=== PATIENT | male | born 1985 | race Caucasian/White ===

== ENCOUNTER 2019-11-01 16:18 | Emergency (ER) | payer BC, SELFPAY ==
[2019-11-01 16:20] VITALS: BP 123/72; PULSE 98; RESP 20; TEMP 36.4; O2SAT 96; BMI 33.4
--- NOTE | 2019-11-01 16:28 | ECG_ITS ---
[facility] Test Date: 2019-11-01 Pat Name: Joce Darling Department: Room: Gender: Male Carrot Tier: : 1985 Requested By: Ly Haider Order Number: [id number] Linden MD: Leon Jo M.D. Measurements Intervals [place] Rate: 82 P: 52 ND: 161 QRS: 34 QRSD: 94 T: 11 QT: 398 QTc: 468 Interpretive Statements SINUS RHYTHM PROBABLE INFERIOR MYOCARDIAL INFARCTION , PROBABLY OLD [35 ms Q WAVE IN II/aVF] No previous ECG available for comparison Electronically Signed On 11-01-2019 16:41:51 CDT by Leon Jo M.D. [id number] f
[2019-11-01 16:31] VITALS: BP 124/78; PULSE 84; RESP 20; O2SAT 97
[2019-11-01] MEDS: sodium chloride 0.9% 1,000 ML 999 ML IV (16:33)
--- NOTE | 2019-11-01 16:35 | W.ED.ALLEREA ---
HPI - Allergic Reaction General: Chief complaint: Allergic Reaction Stated complaint: ALLERGIC RXN WASP STING Time Seen by Provider: 11/01/19 16:24 Source: patient and EMS Mode of arrival: EMS Limitations: no limitations History of Present Illness: HPI narrative: 34-year-old male who is here after an allergic reaction. Patient states that he was stung by a wasp at 330. He states he started have some slight dyspnea he had allergic reactions to wasps in the past and gave himself an EpiPen and treated with Benadryl. When EMS arrived he had no rash or shortness of breath. Patient is given IV Benadryl as well. He states that he has no shortness of breath and no swelling or rash at this time. Denies any worsening or improving factors. MD complaint: allergic reaction Associated symptoms: Deny abdominal pain, nausea or vomiting Review of Systems Const: Denies: fever(s), chills, body aches or change in appetite Eyes: Denies: blurry vision or eye discomfort ENMT: Denies: throat pain or dental pain Card: Denies: chest pain Resp: Denies: dyspnea GI: Denies: abdominal pain, nausea, vomiting or diarrhea : Denies: dysuria Musc: Denies: neck pain or back pain Skin/Breast: Denies: rash Neuro: Denies: headache(s) Psych: Denies: depression Mario/Lymph: Denies: easy bruising All/Imm: Denies: urticaria Physical Exam Const: COMMON NORMALS: no acute distress, patient oriented x3 and healthy appearing HENMT: COMMON NORMALS: normocephalic and atraumatic HEAD & SCALP: normocephalic and atraumatic Eye: COMMON NORMALS: Equal, round and reactive pupils present and EOMs intact bilaterally PUPIL: Yes Equal, round and reactive pupils present Neck/C-Spine: COMMON NORMALS: full ROM and supple Chest: COMMONS NORMALS: normal inspection of the chest and normal palpation of entire chest wall Resp: COMMON NORMALS: normal respiratory effort, No retractions, No use of accessory muscles and clear to auscultation bilaterally AUSCULTATION: clear to auscultation bilaterally Cardio: COMMON NORMALS: regular rate, regular rhythm and No murmurs present (Cardio) RATE: regular rate RHYTHM: regular rhythm GI: COMMON NORMALS: Normal to inspection, nondistended, normoactive bowel sounds present, Soft to palpation, non-tender and no masses PALPATION: Yes Soft to palpation Extremity: COMMON NORMALS: normal to inspection and full ROM Neuro: COMMON NORMALS: patient oriented x3, moves all extremities and no focal motor deficits Psych: COMMON NORMALS: mental status grossly normal, Normal thought process present and cooperative THOUGHT PROCESS: Normal thought process present Skin: COMMON NORMALS: no rashes or lesions noted and no wounds GENERAL SKIN EXAM: no rashes or lesions noted Course Vital Signs: Vital signs: Vital Signs Temperature 97.6 F 11/01/19 16:20 Pulse Rate 84 11/01/19 16:31 Respiratory Rate 20 H 11/01/19 16:31 Blood Pressure 124/78 11/01/19 16:31 Pulse Oximetry 97 11/01/19 16:31 MDM - Allergic Reaction MDM Narrative: Medical decision making narrative: 34-year-old male who presents here with an allergic reaction. Patient states that he feels much improved here. He has been 2 hours post his epinephrine injection and has had no symptoms of severe anaphylaxis. Patient is stable for direct discharge and will refill his EpiPen. EKG Data^: EKG 1: Attestation: I personally reviewed and interpreted this EKG as follows: EKG interpretation date: 11/01/19 EKG interpretation time: 16:38 Interpretation: nsr hr [address] or t wave abnormalities qrs 94 qtc 437 Discharge Plan Discharge Patient Disposition: Home, Self-Care Clinical Impression: Allergic reaction Qualifiers: Encounter type: initial encounter Qualified Code(s): T78.40XA - Allergy, unspecified, initial encounter Condition: Stable Prescriptions: New EpiPen 2-Jose Elias 0.3 mg/0.3 mL auto-injector 0.3 mg IM Q4H PRN (Reason: anaphylaxis) Qty: 1 RF: 0 Discharge Orders: Discharge Order (Routine); Ordered 11/01/19 Ordered By: Ly Haider Discharge Diet: Advance as tolerated Discharge Activity: Resume usual activity Patient Instructions: Anaphylaxis (ED) Coding Level of Care Code ED Drapery And Upholstery Estimator for Ashleighg Fwd Exam Comprehensive
[2019-11-01 17:23] VITALS: BP 108/88; PULSE 95; RESP 22; O2SAT 99
== END 2019-11-01 17:22 | disposition home or self-care (01) ==
PROVIDERS: Emergency Provider Emergency Medicine
DX: T78.40XA Allergy, unspecified, initial encounter (principal)
CPT/HCPCS: 12345; 93005; 96361; 96374; 96375; 99283; 99284; J2930; J7030

== ENCOUNTER 2022-05-12 12:15 | Emergency (ER) | payer BC, SELFPAY ==
[2022-05-12 12:35] VITALS: BP 128/85; PULSE 71; RESP 16; TEMP 36.4; O2SAT 99
--- NOTE | 2022-05-12 12:40 | XRR_ITS ---
PROCEDURE INFORMATION: Exam: XR Right Hand Exam date and time: 05/12/2022 12:54 PM Age: 36 years old Clinical indication: Injury or trauma; Other: Nail in thumb; Puncture; Finger; Right TECHNIQUE: Imaging protocol: Radiologic exam of the Right hand. Views: Frontal, lateral, and oblique, 3 views. COMPARISON: No relevant prior studies available. FINDINGS: Bones/joints: No acute bony abnormality identified. Soft tissues: 8 cm metallic nail oriented from proximally (lateral to the distal epiphysis of the 1st metacarpal) to distally (the tip in the soft tissues anterolateral to the distal radius). XR/XR hand RT min 3V* [id number] IMPRESSION: 1. Soft tissue foreign body. 2. No acute bony injury identified.
[2022-05-12] MEDS: HYDROcodone-acetaminophen 5-325 mg Tablet 1 TAB PO (13:20)
[2022-05-12] MEDS: tetanus-dipt-pertussis 0.5 mL SDV IM (13:21)
[2022-05-12] MEDS: lidocaine 1% INJ 10 mL (per mL) 5 ML XX (13:23)
[2022-05-12 13:42] VITALS: BP 119/72; PULSE 69; RESP 14; O2SAT 99
--- NOTE | 2022-05-12 14:00 | ED_ITS ---
Documented by User: Claire Currie PA-C 05/12/22 14:05 HPI - Extremity Problem General: Chief complaint: Extremity Injury, Upper Stated complaint: Nail in hand Time Seen by Provider: 05/12/22 12:41 Source: patient Mode of arrival: ambulatory Limitations: no limitations History of Present Illness: 6-year-old male presents to the ER today for a nail in the right hand. 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 This is at the base of the thumb and it did come out the other side. The nail is still in place. Patient also still has the glove on because he could not remove it. He reports some mild pain with certain movements. Denies any decrease sensation. No decreased movement. Bleeding controlled. Review of Systems General: Reports: 10 or more systems reviewed and unremarkable except in HPI and below Physical Exam Const: COMMON NORMALS: no acute distress, average body habitus, patient oriented x3, no limitations, healthy appearing, alert and well nourished Resp: COMMON NORMALS: normal respiratory effort EFFORT & INSPECTION: Yes able to speak in complete sentences Cardio: COMMON NORMALS: regular rate and regular rhythm RATE: regular rate RHYTHM: regular rhythm Extremity: NARRATIVE EXTREMITY EXAM: Patient is noted to have a nail through the right hand. This is at the base of the thumb does not appear to be through the joint. There is mild swelling. Patient has mild tenderness to palpation of that area. Normal range of motion at this time. No numbness or tingling noted. Neuro: COMMON NORMALS: patient oriented x3 SENSORIUM/ORIENTATION: Yes alert Psych: COMMON NORMALS: mental status grossly normal, Normal thought process present and cooperative THOUGHT PROCESS: Normal thought process present Skin: NARRATIVE SKIN EXAM: Puncture wound where the nail entered the right thumb just below the base/joint and exited superior to the wrist. Bleeding controlled. Procedures Foreign Body Removal Site: right and hand Description of foreign body: other (Large nail) Sedation/Analgesia: other (1% lidocaine without epi, 4 cc infiltrated around the nail.) Technique: manual removal (With pliers) Confirmed by:: direct visualization and radiograph Complications: none Post-procedure exam: awake, alert Neurovascular: normal distal pulse and normal capillary fill Course ED course: Patient has a nail still in place through a glove in the right hand. We will get an x-ray to make sure this does not involve bone or joint. Patient denies any pain currently. His tetanus status is unknown. Vital Signs: Vital signs: Vital Signs Temperature 97.6 F 05/12/22 12:35 Pulse Rate 69 05/12/22 13:42 Respiratory Rate 14 05/12/22 13:42 Blood Pressure 119/72 05/12/22 13:42 Pulse Oximetry 99 05/12/22 13:42 Oxygen Delivery Me thod 05/12/22 12:35 MDM - Extremity (Nontraumatic) Medical Decision Making X-ray does not indicate any bone or joint involvement. This appears to be through soft tissue. See foreign body removal note. Patient tolerated the procedure very well. We will start patient on Augmentin given patient was wearing a glove that was made of rubber in addition to having a puncture wound. Tdap was also updated today. We discussed signs of infection and when to return to the ER. Follow-up with PCP in 5 to 7 days for wound check. Return to the ER with new or worsening symptoms. Patient verbalized understanding and was in agreement with the treatment plan. Lab Data Radiology Impressions Hand X-Ray 05/12/22 12:40 IMPRESSION: 1. Soft tissue foreign body. 2. No acute bony injury identified. Critical Care Time Critical Care Time: Critical Care Time: No Discharge Plan Discharge Patient Disposition: Home Clinical Impression: Injury of hand by nail gun Qualifiers: Encounter type: initial encounter Laterality: right Qualified Code(s): S69.91XA - Unspecified injury of right wrist, hand and finger(s), initial encounter Condition: Stable Prescriptions: New amoxicillin-pot clavulanate 875-125 mg tablet 1 tab PO BID Qty: 20 0RF No Action cephalexin 500 mg capsule 500 mg PO BID 7 Days Qty: 14 0RF silver sulfadiazine 1 % cream 1 applic topical BID 14 Days Qty: 50 2RF Rx Instructions: apply a 1.5 mm thickness EpiPen 2-Jose Elias 0.3 mg/0.3 mL auto-injector 0.3 mg IM Q4H PRN (Reason: anaphylaxis) Qty: 1 0RF Discharge Orders: Discharge ED (Routine); Ordered 05/12/22 Ordered By: Claire Currie Referrals: Anthony Meyer MD [Primary Care Provider] - Discharge Diet: Usual diet Discharge Activity: Resume usual activity Patient Instructions: Opioid Safety, Pain Management Activity Restrictions/Additional Instructions: Clean wound once daily with antibacterial soap and water. Take Augmentin as prescribed. Watch for signs of infection. Follow-up with PCP in 5 to 7 days for wound check. Return to the ER with new or worsening symptoms. Coding Level of Care Code ED Director Of Quantitative Research for Adam Fwd Exam Expanded Problem Focused Documented by User: Daniele Payton DO 05/13/22 06:20 HPI - Extremity Problem General: Chief complaint: Extremity Injury, Upper Stated complaint: Nail in hand Time Seen by Provider: 05/12/22 12:41 Course Vital Signs: Vital signs: Vital Signs Temperature 97.6 F 05/12/22 12:35 Pulse Rate 69 05/12/22 13:42 Respiratory Rate 14 05/12/22 13:42 Blood Pressure 119/72 05/12/22 13:42 Pulse Oximetry 99 05/12/22 13:42 Oxygen Delivery Me thod 05/12/22 12:35 MDM - Extremity (Nontraumatic) Medical Decision Making X-ray does not indicate any bone or joint involvement. This appears to be through soft tissue. See foreign body removal note. Patient tolerated the procedure very well. We will start patient on Augmentin given patient was wearing a glove that was made of rubber in addition to having a puncture wound. Tdap was also updated today. We discussed signs of infection and when to return to the ER. Follow-up with PCP in 5 to 7 days for wound check. Return to the ER with new or worsening symptoms. Patient verbalized understanding and was in agreement with the treatment plan. Mid chart reviewed and patient discussed with midlevel. Agree with assessment and plan. Lab Data Radiology Impressions Hand X-Ray 05/12/22 12:40 IMPRESSION: 1. Soft tissue foreign body. 2. No acute bony injury identified. Discharge Plan Discharge Patient Disposition: Home Clinical Impression: Injury of hand by nail gun Qualifiers: Encounter type: initial encounter Laterality: right Qualified Code(s): S69.91XA - Unspecified injury of right wrist, hand and finger(s), initial encounter Condition: Stable Prescriptions: New amoxicillin-pot clavulanate 875-125 mg tablet 1 tab PO BID Qty: 20 0RF No Action cephalexin 500 mg capsule 500 mg PO BID 7 Days Qty: 14 0RF silver sulfadiazine 1 % cream 1 applic topical BID 14 Days Qty: 50 2RF Rx Instructions: apply a 1.5 mm thickness EpiPen 2-Jose Elias 0.3 mg/0.3 mL auto-injector 0.3 mg IM Q4H PRN (Reason: anaphylaxis) Qty: 1 0RF Discharge Orders: Discharge ED (Routine); Ordered 05/12/22 Ordered By: Claire Currie Referrals: Anthony Meyer MD [Primary Care Provider] - Discharge Diet: Usual diet Discharge Activity: Resume usual activity Patient Instructions: Opioid Safety, Pain Management Activity Restrictions/Additional Instructions: Clean wound once daily with antibacterial soap and water. Take Augmentin as prescribed. Watch for signs of infection. Follow-up with PCP in 5 to 7 days for wound check. Return to the ER with new or worsening symptoms. Coding Level of Care Code ED Director Of Quantitative Research for Adam Fwmartha Exam Expanded Problem Focused
== END 2022-05-12 13:43 | disposition home or self-care (01) ==
PROVIDERS: Emergency Provider Physician Assistant; PCP Family Medicine
DX: S61.441A Puncture wound with foreign body of right hand, initial encounter (principal); W29.4XXA Contact with nail gun, initial encounter; Z23 Encounter for immunization
CPT/HCPCS: 73130; 90471; 90715; 99283

== ENCOUNTER 2023-08-03 16:34 | Inpatient (IN) | payer BC, SELFPAY ==
[2023-08-03 16:42] VITALS: BP 159/102; PULSE 79; RESP 16; TEMP 36.8; O2SAT 99
--- NOTE | 2023-08-03 16:53 | ECG_ITS ---
[facility] Test Date: 2023-08-03 Pat Name: Joce Darling Department: Room: Gender: Male Tours Captain: : 1985 Requested By: Belinda Carmona Order Number: [id number] Linden MD: Ernestina Romero M.D. Measurements Intervals [place] Rate: 70 P: 54 MT: 138 QRS: 42 QRSD: 81 T: 34 QT: 397 QTc: 430 Interpretive Statements SINUS RHYTHM LOW QRS VOLTAGE IN PRECORDIAL LEADS [QRS DEFLECTION < 1.0 mV IN CHEST LEADS] Compared to ECG 11/01/2019 16:38:05 Low QRS voltage now present Myocardial infarct finding no longer present Electronically Signed On 08-03-2023 20:53:21 CDT by Ernestina Romero M.D. [id number]
--- NOTE | 2023-08-03 16:53 | ED.C_ITS ---
HPI - Psych 2 General: Chief Complaint: Psychiatric Symptoms Stated Complaint: 96 hold Time Seen by Provider: 08/03/23 16:45 History of Present Illness: 37-year-old man with a history of depres naresh who presents to the emergency room with police after having a domestic dispute. The had videos of him threatening her. Police say they brought him here because he is threatening her and cannot go home but they do not have any charges to press. He states his marijuana is not working for his psychiatric issues. Review of Systems 2 Narrative: Constitutional symptoms: Negative except as documented in HPI. Skin symptoms: Negative except as documented in HPI. Eye symptoms: Negative except as documented in HPI. ENMT symptoms: Negative except as documented in HPI. Respiratory symptoms: Negative except as documented in HPI. Cardiovascular symptoms: Negative except as documented in HPI. Gastrointestinal symptoms: Negative except as documented in HPI. Genitourinary symptoms: Negative except as documented in HPI. Musculoskeletal symptoms: Negative except as documented in HPI. Neurologic symptoms: Negative except as documented in HPI. Psychiatric symptoms: Negative except as documented in HPI. Endocrine symptoms: Negative except as documented in HPI. Physical Exam 2 Narrative: EXAM NARRATIVE: General: Alert, no acute distress. Skin: Warm, dry. Head: Normocephalic, atraumatic. Neck: Supple, trachea midline. Eye: Extraocular movements are intact. Ears, nose, mouth and throat: mucosa moist. Cardiovascular: Regular, Normal peripheral perfusion. Respiratory: Lungs are clear to auscultation, respirations are non-labored, breath sounds are equal, Symmetrical chest wall expansion. Gastrointestinal: Soft, Nontender, Non distended, Normal bowel sounds. Musculoskeletal: Normal ROM, no deformity. Neurological: Alert and oriented, No focal neurological deficit observed. Psychiatric: Cooperative, patient now appears calm, but he does say he he would agree to get inpatient help. Course 2 Vital Signs: Vital signs: Vital Signs Temperature 98.2 F 08/03/23 16:42 Pulse Rate 79 08/03/23 16:42 Respiratory Rate 16 08/03/23 16:42 Blood Pressure 159/102 08/03/23 16:42 Pulse Oximetry 99 08/03/23 16:42 [facility] - Psych Medical Decision Making Patient with reported depression and suicidal ideation. concerns for infection, alcohol intoxication, cardiac issues or other medical problems prior to psychiatric admission. - Workup: labwork, ekg ordered to evaluate the pathologies and to clear the patient medically prior to psychiatric admission Lab Data 08/03/23 18:11 08/03/23 18:11 Laboratory Results WBC 7.22 10^3/uL (3.29-11.43) 08/03/23 18:11 RBC 4.72 10^6/uL (3.85-5.65) 08/03/23 18:11 Hgb 14.80 g/dL (11.27-16.99) 08/03/23 18:11 Hct 43.2 % (37-53) 08/03/23 18:11 MCV 91.5 fl (82-101) 08/03/23 18:11 MCH 31.4 pg (27-33) 08/03/23 18:11 MCHC 34.3 g/dL (30-55) 08/03/23 18:11 RDW 12.0 % (12.1-15.1) L 08/03/23 18:11 Plt Count 215 10^3/cmm (157-399) 08/03/23 18:11 MPV 9.4 fL (7.4-10.4) 08/03/23 18:11 Neut % (Auto) 74.0 % 08/03/23 18:11 Lymph % (Auto) 14.4 % 08/03/23 18:11 Becker % (Auto) 10.0 % 08/03/23 18:11 Eos % (Auto) 1.0 % 08/03/23 18:11 Baso % (Auto) 0.3 % 08/03/23 18:11 Neut # (Auto) 5.35 10^3/uL (1.8-7.7) 08/03/23 18:11 Lymph # (Auto) 1.0 10^3/uL (0.8-4.8) 08/03/23 18:11 Becker # (Auto) 0.7 10^3/uL (0.2-0.9) 08/03/23 18:11 Eos # (Auto) 0.1 10^3/uL (0.0-0.8) 08/03/23 18:11 Baso # (Auto) 0.0 10^3/uL (0.0-0.1) 08/03/23 18:11 Nucleated RBC % (auto) 0 % 08/03/23 18:11 Nucleated RBCs # 0.0 /100WBC 08/03/23 18:11 Sodium 141 mmol/L (136-145) 08/03/23 18:11 Potassium 4.0 mmol/L (3.5-5.1) 08/03/23 18:11 Chloride 106 mmol/L (98-107) 08/03/23 18:11 Carbon Dioxide 25 mmol/L (22-29) 08/03/23 18:11 Anion Gap 14.0 (5-19) 08/03/23 18:11 BUN 26 mg/dL (6-20) H 08/03/23 18:11 Creatinine 0.7 mg/dL (0.7-1.2) 08/03/23 18:11 GFR Calculation 126.2 mL/min (90-130) 08/03/23 18:11 Glucose 136 mg/dL (65-115) H 08/03/23 18:11 Calculated Osmolality 299 mOsm/kg (285-295) H 08/03/23 18:11 Calcium 8.9 mg/dL (8.5-10.5) 08/03/23 18:11 Total Bilirubin 0.7 mg/dL (0.15-1.2) 08/03/23 18:11 AST 23 U/L (0-40) 08/03/23 18:11 ALT 19 U/L (0-41) 08/03/23 18:11 Alkaline Phosphatase 72 U/L (40-130) 08/03/23 18:11 Total Protein 6.9 g/dL (6.6-8.7) 08/03/23 18:11 Albumin 4.3 g/dL (3.5-5.2) 08/03/23 18:11 Globulin 2.6 g/dL (1.3-4.6) 08/03/23 18:11 TSH 0.78 uIU/mL (0.27-4.20) 08/03/23 18:11 Urine Color Yellow (Yellow) 08/03/23 17:00 Urine Appearance Cloudy (CLEAR) A 08/03/23 17:00 Urine pH 7 (5-7) 08/03/23 17:00 Ur Specific [place] 1.020 (1.005-1.030) 08/03/23 17:00 Urine Protein Neg (Negative) 08/03/23 17:00 Urine Glucose (UA) Norm (Normal) 08/03/23 17:00 Urine Ketones Negative (Negative) 08/03/23 17:00 Urine Blood Neg (Negative) 08/03/23 17:00 Urine Nitrate Negative (Negative) 08/03/23 17:00 Urine Bilirubin Neg (Negative) 08/03/23 17:00 Urine Urobilinogen 4 mg/dL (Negative) H 08/03/23 17:00 Ur Leukocyte Esterase Negative (Negative) 08/03/23 17:00 Urine RBC None /hpf (0-2) 08/03/23 17:00 Urine WBC Rare /hpf (0-5) 08/03/23 17:00 Ur Squamous Epith Cells None /hpf (0-5) 08/03/23 17:00 Amorphous Sediment 3+ /hpf 08/03/23 17:00 Urine Bacteria Trace /hpf (NONE) 08/03/23 17:00 Salicylates 0.7 mg/dL (3-10) L 08/03/23 18:11 Urine Opiates Screen Negative ng/mL (Negative) 08/03/23 17:00 Acetaminophen < 5.0 ug/mL (10-30) L 08/03/23 18:11 Ur Barbiturates Screen Negative ng/mL (Negative) 08/03/23 17:00 Ur Phencyclidine Scrn Negative ng/mL (Negative) 08/03/23 17:00 Ur Amphetamines Screen Negative ng/mL (Negative) 08/03/23 17:00 U Benzodiazepines Scrn Negative ng/mL (Negative) 08/03/23 17:00 Urine Cocaine Screen Negative ng/mL (Negative) 08/03/23 17:00 U Marijuana (THC) Screen Positive ng/mL (Negative) H 08/03/23 17:00 Ethyl Alcohol < 10 mg/dL (0-10) 08/03/23 18:11 No radiology studies performed this visit Other Data Assessment and plan Psychiatric problem - Medically cleared. - EKG shows no ischemic changes. - Blood alcohol level is negative, as well as salicylate and Tylenol. - Drug screen is negative - No signs of infection, urinalysis clear and white count is not elevated - No anemia. - BUN and creatinine are within normal limits. - Transfer to psychiatric facility for continued evaluation and treatment. - All imaging and lab work were reviewed and interpreted personally by myself, the ER physician - Evaluation and treatment of this problem were appropriate in the emergency setting Discharge Plan Discharge Patient Disposition: Admitted As Inpatient Clinical Impression: Psychiatric problem Condition: Stable Coding Level of Care Code ED Fundraising Sale Representative for Adam Adrian
[2023-08-03 17:20] LABS: Amphetamines Screen Urine Negative (Negative); Barbiturates Screen Urine Negative (Negative); Benzodiazepines Screen Urine Negative (Negative); Cocaine Screen Urine Negative (Negative); Opiate Screen Urine Negative (Negative); PCP Screen Urine Negative (Negative); THC Screen Urine Positive (Negative)
[2023-08-03 18:04] LABS: Add Urine Microscopic? YES; Bilirubin Urine Neg (Negative); Blood Urine Neg (Negative); Glucose Urine UA Norm (Normal); Ketones Urine Negative (Negative); Leukocyte Esterase Urine Negative (Negative); Nitrate Urine Negative (Negative); Protein Urine Neg (Negative); Urine Appearance Cloudy (CLEAR); Urine Color Yellow (Yellow); Urobilinogen Urine 4 mg/dL (Negative); WBC Urine RARE /hpf (0-5); pH Urine 7 (5-7)
[2023-08-03 18:05] LABS: Add Urine Culture? No; Amorphous Sediment Urine 3+ /hpf; Bacteria Urine TRACE /hpf
[2023-08-03 18:18] LABS: Basophils % 0.3 %; Eosinophils # 0.1 10^3/uL (0.0-0.8); Hematocrit 43.2 % (37-53); Lymphocytes % 14.4 %; Mean Corpuscular HGB Conc 34.3 g/dL (30-55); Mean Corpuscular Hemoglobin 31.4 pg (27-33); Mean Corpuscular Volume 91.5 fl (82-101); Mean Platelet Volume 9.4 fL (7.4-10.4); Monocytes # 0.7 10^3/uL (0.2-0.9); Neutrophils # 5.35 10^3/uL (1.8-7.7); Nucleated Red Blood Cells % 0 %; Platelet Count 215 10^3/cmm (157-399); Red Blood Count 4.72 10^6/uL (3.85-5.65); White Blood Count 7.22 10^3/uL (3.29-11.43)
[2023-08-03 18:45] LABS: Alanine Aminotransferase 19 U/L (0-41); Albumin Level 4.3 g/dL (3.5-5.2); Alkaline Phosphatase 72 U/L (40-130); Aspartate Amino Transferase 23 U/L (0-40); Blood Urea Nitrogen 26 mg/dL (6-20); Calcium 8.9 mg/dL (8.5-10.5); Carbon Dioxide 25 mmol/L (22-29); Chloride 106 mmol/L (98-107); Creatinine Clr Calc Pharmacy 152.8243; Globulin 2.6 g/dL (1.3-4.6); Glomerular Filtration Rate 126.2 mL/min (90-130); Glucose 136 mg/dL (65-115); Osmolality Calculated 299 mOsm/kg (285-295); Salicylate 0.7 mg/dL (3-10); Sodium 141 mmol/L (136-145); Thyroid Stimulating Hormone 0.78 uIU/mL (0.27-4.20); Total Bilirubin 0.7 mg/dL (0.15-1.2); Total Protein 6.9 g/dL (6.6-8.7)
[2023-08-03 18:50] LABS: Acetaminophen < 5.0 ug/mL (10-30); Alcohol Level < 10 mg/dL (0-10)
[2023-08-03 20:18] VITALS: BP 123/69; PULSE 88; PULSE 89; RESP 16
[2023-08-03 20:20] VITALS: BP 115/77; PULSE 66; RESP 15; TEMP 36.4; O2SAT 96
[2023-08-03 22:00] VITALS: BP 115/77; PULSE 66; RESP 15; TEMP 36.4; O2SAT 96
[2023-08-04] MEDS: trazodone 50 mg Tablet PO ×3 (01:13→23:23)
[2023-08-04] MEDS: hyDROXYzine 25 mg Capsule 50 MG PO (01:14)
[2023-08-04 06:00] VITALS: BP 142/74; PULSE 67; RESP 16; TEMP 36.3; O2SAT 98
[2023-08-04] MEDS: escitalopram 10 mg Tablet 20 MG PO (08:11)
--- NOTE | 2023-08-04 11:02 | PC.NURSE ---
room search preformed no contra band found. beds stripped and cleaned.
[2023-08-04 13:20] VITALS: BP 158/100; PULSE 85; RESP 16; TEMP 36.9; O2SAT 96
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
[2023-08-04 19:55] VITALS: BP 115/65; PULSE 81; RESP 17; TEMP 36.9; O2SAT 97
[2023-08-05 06:34] VITALS: BP 136/95; PULSE 77; RESP 16; TEMP 36.7; O2SAT 99
[2023-08-05] MEDS: escitalopram 10 mg Tablet 20 MG PO (07:31)
[2023-08-05 11:36] VITALS: BP 136/95; PULSE 77; RESP 16; TEMP 36.7; O2SAT 99
[2023-08-05 14:00] VITALS: BP 145/82; PULSE 97; RESP 20; TEMP 36.7; O2SAT 97
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
== END 2023-08-05 15:15 | disposition home or self-care (01) | DRG 880 ==
LOC: ER 19:01 → NP 19:26
PROVIDERS: Admitting Provider Psychiatry & Neurology Psychiatry; Emergency Provider Emergency Medicine; PCP Family Medicine; Visit Provider Psychiatry & Neurology Psychiatry
DX: F41.9 Anxiety disorder, unspecified (principal); F39 Unspecified mood [affective] disorder; F90.9 Attention-deficit hyperactivity disorder, unspecified type; Z63.0 Problems in relationship with spouse or partner
CPT/HCPCS: 36415; 80053; 80306; 80307; 81001; 84443; 85025; 93005; 97150; 97165; 99285; J9999

== ENCOUNTER 2023-08-14 10:31 | Inpatient (IN) | payer BC, SELFPAY ==
[2023-08-14 10:36] VITALS: BP 149/89; PULSE 81; RESP 16; TEMP 36.8; O2SAT 94; BMI 28.1
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
[2023-08-14 11:55] LABS: Basophils % 0.3 %; Eosinophils # 0.1 10^3/uL (0.0-0.8); Eosinophils % 1.4 %; Hematocrit 47.8 % (37-53); Lymphocytes # 1.3 10^3/uL (0.8-4.8); Lymphocytes % 20.2 %; Mean Corpuscular HGB Conc 34.1 g/dL (30-55); Mean Corpuscular Hemoglobin 30.9 pg (27-33); Mean Corpuscular Volume 90.5 fl (82-101); Mean Platelet Volume 9.6 fL (7.4-10.4); Monocytes # 0.6 10^3/uL (0.2-0.9); Monocytes % 9.5 %; Neutrophils # 4.47 10^3/uL (1.8-7.7); Neutrophils % 68.3 %; Nucleated Red Blood Cells % 0 %; Platelet Count 218 10^3/cmm (157-399); Red Blood Count 5.28 10^6/uL (3.85-5.65); Red Cell Distribution Width 11.9 % (12.1-15.1); White Blood Count 6.54 10^3/uL (3.29-11.43)
[2023-08-14 12:15] LABS: Alanine Aminotransferase 19 U/L (0-41); Albumin Level 4.4 g/dL (3.5-5.2); Alkaline Phosphatase 72 U/L (40-130); Anion Gap 14.4 (5-19); Blood Urea Nitrogen 21 mg/dL (6-20); Calcium 9.3 mg/dL (8.5-10.5); Carbon Dioxide 30 mmol/L (22-29); Chloride 105 mmol/L (98-107); Creatinine Clr Calc Pharmacy 132.1148; Glomerular Filtration Rate 108.2 mL/min (90-130); Glucose 110 mg/dL (65-115); Osmolality Calculated 304 mOsm/kg (285-295); Potassium 4.4 mmol/L (3.5-5.1); Sodium 145 mmol/L (136-145); Total Bilirubin 0.4 mg/dL (0.15-1.2); Total Protein 7.4 g/dL (6.6-8.7)
[2023-08-14 12:17] LABS: Acetaminophen < 5.0 ug/mL (10-30); Alcohol Level < 10 mg/dL (0-10); Salicylate < 0.3 mg/dL (3-10)
[2023-08-14 12:26] LABS: Aspartate Amino Transferase 21 U/L (0-40)
[2023-08-14 13:07] LABS: Add Urine Microscopic? YES; Bilirubin Urine Neg (Negative); Blood Urine Neg (Negative); Glucose Urine UA Norm (Normal); Ketones Urine Negative (Negative); Leukocyte Esterase Urine Trace (Negative); Nitrate Urine Negative (Negative); Protein Urine Neg (Negative); Specific Gravity, Urine 1.015 (1.005-1.030); Urine Appearance SL Hazy (CLEAR); Urine Color Yellow (Yellow); Urobilinogen Urine Norm (Negative); pH Urine 7 (5-7)
[2023-08-14 13:09] LABS: Add Urine Culture? No; Amorphous Sediment Urine 1+ /hpf
[2023-08-14 13:10] LABS: Amphetamines Screen Urine Negative (Negative); Barbiturates Screen Urine Negative (Negative); Benzodiazepines Screen Urine Negative (Negative); Cocaine Screen Urine Negative (Negative); Opiate Screen Urine Negative (Negative); PCP Screen Urine Negative (Negative); THC Screen Urine Positive (Negative)
[2023-08-14 13:22] VITALS: BP 149/99; PULSE 83; RESP 17; O2SAT 98
[2023-08-14 13:36] VITALS: BP 149/97; PULSE 79; RESP 17; TEMP 36.6; O2SAT 98
[2023-08-14 14:00] VITALS: BP 149/97; PULSE 79; RESP 17; TEMP 36.6; O2SAT 98
--- NOTE | 2023-08-14 15:39 | PC.ADMIT ---
[address] [place] Admission Note: The patient,Joce Darling,37 y/o, was given written information regarding hospital policies, unit procedures and contact persons. Patient's smoking status: .DOES NOT SMOKE Vital Signs - 8 hr 08/14/23 10:36 08/14/23 13:22 08/14/23 13:36 Temperature 98.3 F 97.9 F Pulse Rate 81 83 79 Respiratory Rate 16 17 17 Blood Pressure 149/89 149/99 149/97 Pulse Oximetry 94 98 98 Oxygen Delivery Method Room Air 08/14/23 14:00 08/14/23 14:57 Temperature 97.9 F Pulse Rate 79 Respiratory Rate 17 Blood Pressure 149/97 Pulse Oximetry 98 Oxygen Delivery Method Room Air PT RE-ADMITTED TO NPU FROM [facility] AT 1334 VIA WHEELCHAIR AND SECURITY. PT WAS PLACED ON A 96 HOUR I WITH THE [facility] [employer]. 96 HOUR HOLD ENDS ON 08/20/23 AT 1334. PT IS CALM AND COOPERATIVE. A&O TIMES 4. PT WAS GIVEN RIGHTS HANDBOOK AND RIGHTS WERE READ BY THIS RN AT 1500. PT HAD NO QUESTIONS AT THAT TIME. DENIES PAIN. DENIES SI/HI AND AVH AT THIS TIME. PT STATES HE IS HERE AGAIN DUE TO WANTING TO MAKE SURE MY MENTAL HEALTH ISN'T ALTERED AFTER EXTENSIVE MARIJUANA USE RECENTLY. PT DID TEST POSITIVE FOR THC ON UDS. PT DOES REPORT USING MARIJUANA UP TO A WEEK AGO, STATING HIS LAST USE WAS LAST FRIDAY ON 08/07/23 AND REPORTS HIS LAST ALCOHOLIC BEVERAGE ON 08/08/23, DRINKING ONE BEER. PT IS ACCOMPANIED WITH SEVERAL AFFIDAVITS FROM FAMILY MEMBERS AND FRIENDS. PT STATES MY FAMILY IS JUST WORRIED AND WANTS TO MAKE SURE I'M OKAY. PT STATES HE STARTED ABUSING MARIJUANA 3 YEARS AGO WHEN RECENTLY PT STATES IT GABRIELE GOT OUT OF CONTROL AND I WAS FIXATING ON STUFF AND MY COULDN'T TAKE IT AND WE WILL PROBABLY GET A DIVORCE. PT IS TEARFUL AT TIMES. RATES DEPRESSION 7/10 WHEN THINKING ABOUT ALL MY PROBLEMS. RATES ANXIETY 3/10. PT WAS ORIENTATED TO UNIT, RULES,, GUIDELINES AND GROUP TIMES/MEAL TIMES. PT DOES REPORT HE USE TO TAKE RATLIN 220 MG AND BROKE THE TABLETS IN HALF AND TOOK 2 TIMES A DAY. PT STATED DR. MATA WANTED TO PLACE HIM ON EXTENDED RELEASE RATLIN THE LAST TIME HE WAS HERE ONE WEEK AGO. PT STATES HE ALSO TAKES LEXAPRO 20 MG DAILY AND CONTINUES TO TAKE IT. ALL QUESTIONS ANSWERED AND SUPPORT WAS VOICED.
[2023-08-14] MEDS: escitalopram 10 mg Tablet 20 MG PO (17:33)
[2023-08-14] MEDS: hyDROXYzine 25 mg Capsule 50 MG PO (20:16)
[2023-08-14] MEDS: trazodone 50 mg Tablet PO (20:16)
[2023-08-14 21:22] VITALS: BP 120/75; PULSE 73; RESP 16; TEMP 36.6; O2SAT 97
[2023-08-15 06:00] VITALS: BP 122/81; PULSE 77; RESP 16; TEMP 36.3; O2SAT 99
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
--- NOTE | 2023-08-15 10:20 | PC.NURSE ---
Addendum entered by Dillon Solis, MELANIE 08/15/23 10:21: She stated that Kari called the nurse and said that Joce attempted to call her Dad and a worker 7 times. Attending nurse notified and phone line switched off. Will continue to monitor Original Note: This tech answer a phone call from nurse Orozco from [facility]. She relay
[2023-08-15 12:28] VITALS: BP 133/89; PULSE 95; RESP 18; TEMP 37.2; O2SAT 96
[2023-08-15 14:00] VITALS: RESP 18
[2023-08-15] MEDS: escitalopram 10 mg Tablet 20 MG PO (17:34)
[2023-08-15 20:12] VITALS: BP 133/86; PULSE 83; RESP 16; TEMP 36.3; O2SAT 97
[2023-08-15] MEDS: trazodone 50 mg Tablet PO (20:36)
[2023-08-15] MEDS: hyDROXYzine 25 mg Capsule 50 MG PO (20:36)
[2023-08-16 06:00] VITALS: BP 117/73; PULSE 93; RESP 16; TEMP 36.3; O2SAT 98
--- NOTE | 2023-08-16 12:23 | P.NPUPN_ITS ---
Subjective NPU 2 Subjective: Patient presented today reporting that things are going okay. We discussed talking with his family and working through some of the issues that seem to be more about family discord that it does safety. We discussed some decisions he needs to make that may impact how they receive etc. he continues to struggle with this decision about marijuana and we discussed an analogy about the person using responsibly versus a person using outside of what will be seen is reasonable. Mental Status Exam 2 MSE Comments: This is an overweight white male in hospital scrubs with adequate grooming and eye contact. No abnormal movements except for mild psychomotor retardation. Cooperative with exam in mild distress. His gait was within normal limits. Speech was slightly decreased volume normal rate. Mood described as as good as can be expected, his affect was slightly restricted in range. His thought process was linear logical and goal-directed. His thought content: He denies suicidal or homicidal ideation, there were no delusions reported or noted, he denied any auditory or visual hallucinations. Patient denies feeling depressed but admits to occasional sadness. He reports severe social anxiety and difficulty interacting with people. He denies having suicidal thoughts and expresses optimism about his future. He reports experiencing heightened stress due to family and marital issues. He admits to acting differently under the influence of cannabis, which has led to conflicts with his . Attention and concentration were intact and memory appeared reliable but none were formally tested. He is alert and oriented x 3. Insight and judgment appeared fair and his impulse control was limited. Vitals/I&O/Wt Last Vital Signs Temp 97.3 F L 08/16/23 06:00 Pulse 93 08/16/23 06:00 Resp 16 08/16/23 06:00 BP 117/73 08/16/23 06:00 Pulse Ox 98 08/16/23 06:00 O2 Del Method Room Air 08/15/23 12:28 08/15/23 08/16/23 08/16/23 22:59 06:59 14:59 Intake Total 240 / 240 120 / 120 Balance 240 / 240 120 / 120 Data NPU 08/14/23 11:11 08/14/23 11:11 A&P Assessment and plan (1) Unspecified mood [affective] disorder: (2) ADHD (attention deficit hyperactivity disorder), combined type: (3) Mood disorder: (4) Marital/partner relational problem: Plan 37-year-old male with 1 inpatient hospitalization about 11 days ago when he he was admitted on a 96-hour hold with allegations of threatening behavior and reports of increased paranoia possibly in the context of use of marijuana returning with continued family conflict with concerns about many different psychosocial factors. Patient presents with severe social anxiety and conflict in his marital relationship due to his cannabis use. He denies having bipolar disorder or depression but admits to occasional sadness. He has a history of ADHD and has been prescribed Ritalin, Lexapro, and Seroquel in the past. He has been hospitalized twice for mental health concerns. 1.? Engage patient in individual milieu and group therapy. 2?? Recommend sober living treatment at the highest level of care to which the patient is willing to commit 3?? TO-15 minute checks 4 continue current medication. 5?? Will attempt to gather collateral information Involuntary Hold Information 2 96 Hour Hold: 96 Hour Involuntary Admission: Yes 96 Hour Hold Ending Date: 08/20/23 96 Hour Hold Ending Time: 13:34 Attestations NPU 2 Medical Necessity Statement*: Inpatient hospitalization is medically necessary and the clinically appropriate intervention at this time.? We will monitor/initiate medications and make changes as indicated.? The patient?s likely length of stay 2-4 days. Coding Level of Care Code Acute Code for Chg Fwd Diagnoses Unspecified mood [affective] disorder F39 ADHD (attention deficit hyperactivity disorder), combined type F90.2 Marital/partner relational problem Z63.0
[2023-08-16 13:32] VITALS: BP 130/87; PULSE 96; RESP 16; TEMP 37; O2SAT 98
[2023-08-16] MEDS: escitalopram 10 mg Tablet 20 MG PO (17:35)
[2023-08-16 20:23] VITALS: BP 112/75; PULSE 90; RESP 18; TEMP 36.5; O2SAT 96
[2023-08-16] MEDS: trazodone 50 mg Tablet PO (21:22)
[2023-08-16] MEDS: hyDROXYzine 25 mg Capsule 50 MG PO (21:22)
[2023-08-17 06:00] VITALS: BP 125/75; PULSE 65; RESP 16; TEMP 36.3; O2SAT 99
--- NOTE | 2023-08-17 13:06 | P.NPUPN_ITS ---
Subjective NPU 2 Subjective: Patient presented today reporting that he is feeling fine and feels prepared to address the challenges of his life and family. He continues to struggle with how to manage the cannabis use. Family making some demands that he is feeling will be hard to except including regular drug testing. However we discussed that there are not have been no signs of psychosis during his stay and that the issues that he and his family are struggling with will need to be addressed by using standard social and or therapeutic options. He denies any side effects to his medications. We discussed a plan for likely discharge tomorrow. Mental Status Exam 2 MSE Comments: This is an overweight white male in hospital scrubs with adequate grooming and eye contact. No abnormal movements except for mild psychomotor retardation. Cooperative with exam in mild distress. His gait was within normal limits. Speech was slightly decreased volume normal rate. Mood described as feeling better, his affect was slightly brighter. His thought process was linear logical and goal-directed. His thought content: He denies suicidal or homicidal ideation, there were no delusions reported or noted, he denied any auditory or visual hallucinations. Patient denies feeling depressed but admits to occasional sadness. He reports severe social anxiety and difficulty interacting with people. He denies having suicidal thoughts and expresses optimism about his future. He reports experiencing heightened stress due to family and marital issues. He admits to acting differently under the influence of cannabis, which has led to conflicts with his . Attention and concentration were intact and memory appeared reliable but none were formally tested. He is alert and oriented x 3. Insight and judgment appeared fair and his impulse control was limited. Vitals/I&O/Wt Last Vital Signs Temp 97.3 F L 08/17/23 06:00 Pulse 65 08/17/23 06:00 Resp 16 08/17/23 06:00 BP 125/75 08/17/23 06:00 Pulse Ox 99 08/17/23 06:00 O2 Del Method Room Air 08/17/23 06:00 Weight last 48 hrs Weight 85.094 kg Data NPU 08/14/23 11:11 08/14/23 11:11 A&P Assessment and plan (1) Unspecified mood [affective] disorder: (2) ADHD (attention deficit hyperactivity disorder), combined type: (3) Mood disorder: (4) Marital/partner relational problem: Plan 37-year-old male with 1 inpatient hospitalization about 11 days ago when he he was admitted on a 96-hour hold with allegations of threatening behavior and reports of increased paranoia possibly in the context of use of marijuana returning with continued family conflict with concerns about many different psychosocial factors. Patient presents with severe social anxiety and conflict in his marital relationship due to his cannabis use. He denies having bipolar disorder or depression but admits to occasional sadness. He has a history of ADHD and has been prescribed Ritalin, Lexapro, and Seroquel in the past. He has been hospitalized twice for mental health concerns. 1.? Engage patient in individual milieu and group therapy. 2?? Recommend sober living treatment at the highest level of care to which the patient is willing to commit 3?? TO-15 minute checks 4 continue current medication. 5?? advised him to tell family that I will be available to speak to them prior to discharge if they have any concerns or want to have any input. Involuntary Hold Information 2 96 Hour Hold: 96 Hour Involuntary Admission: Yes 96 Hour Hold Ending Date: 08/20/23 96 Hour Hold Ending Time: 13:34 Attestations NPU 2 Medical Necessity Statement*: Inpatient hospitalization is medically necessary and the clinically appropriate intervention at this time.? We will monitor/initiate medications and make changes as indicated.? The patient?s likely length of stay 1-3 days. Coding Level of Care Code Acute Code for Chg Fwd Diagnoses Unspecified mood [affective] disorder F39 ADHD (attention deficit hyperactivity disorder), combined type F90.2 Marital/partner relational problem Z63.0
[2023-08-17 14:00] VITALS: BP 136/84; PULSE 95; RESP 20; TEMP 36.6; O2SAT 97
[2023-08-17] MEDS: escitalopram 10 mg Tablet 20 MG PO (17:48)
[2023-08-17 20:31] VITALS: BP 129/85; PULSE 83; RESP 18; TEMP 36.6; O2SAT 97
[2023-08-17] MEDS: trazodone 50 mg Tablet PO (21:45)
[2023-08-17] MEDS: hyDROXYzine 25 mg Capsule 50 MG PO (21:47)
[2023-08-18 06:00] VITALS: BP 125/79; PULSE 75; RESP 16; TEMP 36.4; O2SAT 99
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
[2023-08-18 11:50] VITALS: BP 125/79; PULSE 75; RESP 16; TEMP 36.4; O2SAT 99
== END 2023-08-18 12:35 | disposition home or self-care (01) | DRG 880 ==
LOC: ER 11:51 → NP 12:07
PROVIDERS: Admitting Provider Psychiatry & Neurology Psychiatry; Emergency Provider Internal Medicine; PCP Family Medicine; Visit Provider Psychiatry & Neurology Psychiatry
DX: F41.8 Other specified anxiety disorders (principal); Z63.0 Problems in relationship with spouse or partner; F90.9 Attention-deficit hyperactivity disorder, unspecified type; F39 Unspecified mood [affective] disorder
CPT/HCPCS: 80053; 80306; 80307; 81001; 85025; 97150; 97165; 99285; J9999